=== PATIENT | male | born 1965 | race Caucasian/White ===

== ENCOUNTER 2022-02-28 08:47 | Outpatient (CLI) | payer BC, SELFPAY ==
--- NOTE | 2022-02-28 09:00 | CRLHL7_ITS ---
For Patients: As a result of the Century Cures Act, medical imaging exams and procedure reports are released immediately into your electronic medical record. You may view this report before your referring provider. If you have questions, please contact your health care provider. INDICATION: Pulmonary nodule not otherwise specified. TECHNIQUE: Noncontrast chest CT. COMPARISON: Correlation is made with a two-view chest x-ray November 30, 2020. FINDINGS: Tiny 1 mm subpleural pulmonary nodule anterolateral right middle lobe of the lung image 73 series 3 of no clinical significance. This does not require routine follow-up. This may reflect a tiny intrapulmonary lymph node. The lungs are otherwise clear. No evidence for interstitial lung disease. No pleural or pericardial effusions. The trachea and mainstem bronchi are patent and clear. No thoracic lymphadenopathy. The included thyroid gland is unremarkable. Normal caliber thoracic aorta. Images of the upper abdomen demonstrate normal adrenal glands. No splenomegaly. The included skeleton is within normal limits. Minor spurring of the cervical thoracic spine. IMPRESSION: 1. No acute cardiopulmonary process identified. 2. 1 mm subpleural pulmonary nodule anterolateral right middle lobe image 73 series 3 likely a tiny intrapulmonary lymph node. This is of no clinical significance and does not require routine follow-up. Please note that all CT scans at this facility use dose modulation, iterative reconstruction, and/or weight-based dosing when appropriate to reduce radiation dose to as low as reasonably achievable. Dictated by Adelso Mancia MD @ 02/28/2022 9:46:04 AM (Electronically Signed)
== END 2022-02-28 08:48 | disposition home or self-care (01) ==
LOC: CT 08:48
PROVIDERS: PCP Physician Assistant Medical; Visit Provider Physician Assistant Medical
DX: R91.1 Solitary pulmonary nodule (principal)
CPT/HCPCS: 71250

== ENCOUNTER 2022-08-20 10:22 | Outpatient (CLI) | payer BC, SELFPAY | END 2022-08-20 10:23 | disposition home or self-care (01) | PROVIDERS: PCP Physician Assistant Medical; Visit Provider Physician Assistant Medical | DX: Z00.00 Encounter for general adult medical examination without abnormal findings (principal); I10 Essential (primary) hypertension; E78.5 Hyperlipidemia, unspecified; Z12.5 Encounter for screening for malignant neoplasm of prostate; Z13.6 Encounter for screening for cardiovascular disorders; Z13.29 Encounter for screening for other suspected endocrine disorder | CPT/HCPCS: 80053; 80061; 84153; 84443 ==

== ENCOUNTER 2023-11-04 10:37 | Outpatient (CLI) | payer BC, SELFPAY | END 2023-11-04 10:38 | disposition home or self-care (01) | PROVIDERS: PCP Physician Assistant Medical; Visit Provider Physician Assistant Medical | DX: Z00.00 Encounter for general adult medical examination without abnormal findings (principal); I10 Essential (primary) hypertension; E78.5 Hyperlipidemia, unspecified; M25.561 Pain in right knee; M25.562 Pain in left knee; Z12.5 Encounter for screening for malignant neoplasm of prostate; Z13.0 Encounter for screening for diseases of the blood and blood-forming organs and certain disorders involving the immune mechanism; Z11.59 Encounter for screening for other viral diseases | CPT/HCPCS: 80053; 80061; 82550; 84443; 84550; 86140; 86618; 86703; 86803; G0103 ==

== ENCOUNTER 2024-09-22 08:03 | Outpatient (CLI) | payer BC, SELFPAY | END 2024-09-22 08:04 | disposition home or self-care (01) | LOC: NFLDREF 09-24 04:06 | PROVIDERS: PCP Physician Assistant Medical; Referring Provider Physician Assistant Medical; Visit Provider Physician Assistant Medical | DX: Z00.00 Encounter for general adult medical examination without abnormal findings (principal); E78.5 Hyperlipidemia, unspecified; I10 Essential (primary) hypertension; I48.91 Unspecified atrial fibrillation; M25.551 Pain in right hip; M25.552 Pain in left hip; M25.561 Pain in right knee; M25.562 Pain in left knee | CPT/HCPCS: 80053; 80061; 82306; 82550; 83695; 84443; 84550; 86140; 86200; 86431; 86812 ==

== ENCOUNTER 2024-10-18 15:30 | Outpatient (RCR) | payer BC, SELFPAY | END 2025-01-24 14:22 | disposition home or self-care (01) | PROVIDERS: PCP Physician Assistant Medical; Visit Provider Physician Assistant Medical | DX: M25.551 Pain in right hip (principal); M25.552 Pain in left hip; M25.562 Pain in left knee; M25.561 Pain in right knee; M54.41 Lumbago with sciatica, right side; Z51.89 Encounter for other specified aftercare | CPT/HCPCS: 97110; 97140; 97161 ==